=== PATIENT | female | born 2000 | race Caucasian/White ===

== ENCOUNTER 2021-06-23 11:08 | Emergency (ER) | payer MEDICAID, SELFPAY ==
[2021-06-23 11:15] VITALS: BP 109/73; PULSE 88; RESP 16; TEMP 36.6; O2SAT 97
[2021-06-23 11:22] VITALS: PULSE 82; RESP 16; TEMP 36.8; O2SAT 97
--- NOTE | 2021-06-23 11:25 | ED.GENADUL_ITS ---
Discharge Plan Disposition Patient Disposition: HOME Condition: Improving Discharge Details Chief Complaint: AnimalBite Clinical Impression: Tick bite of left upper arm Primary Care Provider: Manuel Sahu ED Provider: Hira Quevedo Discharge Instructions Instructions: Tick Bite (ED) Additional Instructions: You were given a one-time dose of doxycycline. This may make you slightly sensitive to the sun over the next 24 to 36 hours. Avoid prolonged sun exposure for 1 to 2 days. Return for any acute concern Medical Decision Making 20-year-old female presents with left arm PICC that she believes has been attached since yesterday. The PICC was removed without difficulty, there is no evidence of a rash. Patient given 200 mg of doxycycline empirically for possible Lyme disease exposure. She is stable and appropriate for outpatient. HPI General Mode of arrival: ambulatory . Date/Time Provider Initiated Documentation: 06/23/21 11:20 . Limitations to Documentation: no limitations . Information obtained by: patient . History of Present Illness 20 year old F presents to the emergency department with the chief complaint of Left arm tick, described as mild, and is localized to the left and upper extremity. Patient reports no radiation. Patient started experiencing this hour(s) and it has been constant. improves with No relieving factors improve symptom(s), No exacerbating factors reported . Patient did receive the following treatments prior to arrival, none Related Data Allergies Allergy/AdvReac Type Severity Reaction Status Date / Time No Known Allergies Allergy Unverified 06/23/21 11:19 General Stated Complaint: AnimalBite TIAGO: 4 Review of Systems Narrative: No rash. No other illness. 4 systems reviewed and PFSH All Active Problems (Updated 06/23/21 @ 11:28 by Hira Quevedo MD) Tick bite of left upper arm (Acute) Social History Smoking/Tobacco Use Status: Never Smoking risk assessment performed?: Yes Alcohol Intake: never Drug use: Never Substance use type: does not use Do you feel safe at home: Yes Do you feel safe in your relationship?: Yes Exam Narrative Exam Narrative: GEN: awake, alert, oriented 3. Pleasant, well groomed, interactive. HEAD: Normocephalic, atraumatic CHEST/RESP: No respiratory EXT: Full ROM, no edema, no rash, tick latched on left humerus posteriorly Neuro: Grossly normal neurologic exam, conversant, interactive. Psych: Speech fluent, thoughts congruent, affect normal Course Vital Signs Vital signs: Vital Signs Temperature 36.6 C 06/23/21 11:15 Pulse 88 06/23/21 11:15 Respiratory Rate 16 06/23/21 11:15 Blood Pressure 109/73 06/23/21 11:15 Pulse Oximetry 97 06/23/21 11:15 Temperature 36.8 C 06/23/21 11:22 Pulse 82 06/23/21 11:22 Respiratory Rate 16 06/23/21 11:22 Respiratory Effort 06/23/21 11:20 Blood Pressure 109/73 06/23/21 11:15 Pulse Oximetry 97 06/23/21 11:22 Oxygen Delivery Method Room Air 06/23/21 11:15 Oxygen Flow Rate 0 06/23/21 11:15
[2021-06-23] MEDS: Doxycycline Hyclate 100 MG CAP 200 MG PO (11:32)
== END 2021-06-23 11:34 | disposition home or self-care (01) ==
PROVIDERS: Emergency Provider Emergency Medicine; PCP Family Medicine
DX: S40.862A Insect bite (nonvenomous) of left upper arm, initial encounter (principal); W57.XXXA Bitten or stung by nonvenomous insect and other nonvenomous arthropods, initial encounter
CPT/HCPCS: 99283

== ENCOUNTER 2022-12-16 16:58 | Emergency (ER) | payer BC, SELFPAY ==
--- NOTE | 2022-12-16 17:00 | DI.CT_ITS ---
Exam(s) CT HEAD W EXAM: CT HEAD W CLINICAL HISTORY: r/o posterior eye mass. TECHNIQUE: Imaging Protocol: Axial computed tomography images of the with coronal and sagittal refo rmatted images were created and reviewed. CONTRAST MATERIAL: Intravenous: Omnipaque 350 Contrast volume:100 ml Contrast route:IV - COMPARISON: No exams were available for comparison FINDINGS: Ventricles and Extra axial spaces: Normal in size and morphology for the patient's age. Hemorrhage: None. Cerebral parenchyma: Normal. Enhancement: No suspicious enhancement. Midline shift: None. Brainstem/Cerebellum: Normal. Calvarium: Normal. Visualized Paranasal sinuses/Mastoids: Small mucous retention cyst in the right maxillary sinus. Soft tissues: Unremarkable. No orbital mass is identified. There is no evidence of foreign body or soft tissue swelling. The growth globes appear intact. The optic nerves and after extraocular muscl es appear symmetric. IMPRESSION: Normal contrast enhanced CT scan of the head.No orbital abnormality. RADIATION DOSE DELIVERED: Total DLP DATA REPOSITORY: All CT scans at this facility are submitted to the National Radiology Data Registry (NRDR) Dose Index Registry (DIR) with the [employer] (ACR). RADIATION OPTIMIZATION: All CT scans at this facility use at least one of these dose optimization te chniques: automated exposure control; mA and/or kV adjustment per patient size (includes targeted exa ms where dose is matched to clinical indication); or iterative reconstruction.
[2022-12-16 17:03] VITALS: BP 142/81; PULSE 90; RESP 16; TEMP 36.5; O2SAT 97
[2022-12-16 17:14] VITALS: BP 142/81; PULSE 90; RESP 16; TEMP 36.5; O2SAT 97
--- NOTE | 2022-12-16 17:45 | ED.GENADUL_ITS ---
Discharge Plan Disposition Patient Disposition: Home Discharge Details Chief Complaint: EyeProblem Clinical Impression: Skew deviation of eye, right Primary Care Provider: Manuel Sahu ED Provider: Jamie Potts Home Meds and New Rx's Prescriptions: No Action levothyroxine 175 mcg tablet 175 mcg PO DAILY Patient Comments: TAKE ONE TABLET BY MOUTH EVERY DAY Discharge Instructions Additional Instructions: At this time the CAT scan does not show any evidence of tumor or mass. The neck step is an MRI for further assessment. As we discussed together there are potential viral causes of this or potential neurologic autoimmune components. We will hold off on medications for the time being until we have the MRI for further assessment. Please follow-up closely with your primary care provider and your safety equipment testing specialist. If you notice any worsening of your symptoms, or any new symptoms such as vomiting, diarrhea, fever, chills, shortness of breath, chest pain, numbness, weakness, or fainting , please return immediately to the emergency department for reevaluation. Please follow up with your primary care provider as soon as possible for reassessment and reevaluation. As always, it was a pleasure participating in your medical care today. Referrals: Glenn Bell [ [facility] STAFF PHYSICIAN] - Medical Decision Making 22-year-old female with a past medical history of hypothyroidism presents today for evaluation of vision change. Patient states that over the last 2 months she noticed that she was getting slight double vision. This would be intermittent, but eventually over the last month it became persistent. She went to see her safety equipment testing specialist today, where she was noted to have exotropia with a downward deviation of the right eye. She denies any headache or vision changes otherwise. She denies any numbness tingling or weakness. She denies any family or personal history of pituitary tumor. She denies any other medical problems. She was diagnosed with a hypothyroidism this February. No fevers or weight loss. No headache or neck pain. No change in smell. No other complaints at this time. Ophthalmology recommends evaluation with CT scan. Physical exam demonstrates all cardinal planes of vision and feels vision being intact. No deficit that can be appreciated currently. When the patient is looking forward her right eye naturally deviates down and out, however she is able to bring it midline and track appropriately. No abnormality otherwise. Concern for peripheral cranial nerve palsy, intracranial etiology or pituitary tumor. We will get a CT scan for further assessment. 6:[address] scan has returned no evidence of acute process. No contrast-enhancing lesions. Patient continues to feel well and is asking to be discharged. Discussed potential steroids and antivirals, and the patient would like to hold off on any medications at this time unless absolutely indicated. There is not a clear cause of her symptoms at this time. Differential still includes MS, potential viral etiology, or smaller etiology that be visible on MRI. Understanding this, patient would like to hold off until MRI is performed to start potential steroids or other medications. Will recommend outpatient MRI to be performed by PCP. Otherwise discussed red flags for which to return. Patient feels stable. I have extensively reviewed the treatment plan and discharge instructions with the patient and their family. I have addressed all patient concerns at this time. The patient and family was made aware of what symptoms to monitor for that would warrant a return to the emergency department. Discussed the plan with the patient and family, they demonstrate verbal understanding and agreement with our assessment and plan at this time. The documentation in this chart was dictated using [employer] dictation software. Please excuse any dictation errors. FINDINGS: Ventricles and Extra axial spaces: Normal in size and morphology for the patient's age. Hemorrhage: None. Cerebral parenchyma: Normal. Enhancement: No suspicious enhancement. Midline shift: None. Brainstem/Cerebellum: Normal. Calvarium: Normal. Visualized Paranasal sinuses/Mastoids: Small mucous retention cyst in the right maxillary sinus. Soft tissues: Unremarkable. No orbital mass is identified. There is no evidence of foreign body or soft tissue swelling. The growth globes appear intact. The optic nerves and after extraocular muscles appear symmetric. IMPRESSION: Normal contrast enhanced CT scan of the head.No orbital abnormality. HPI General Date/Time Provider Initiated Documentation: 12/16/22 17:01 . HPI Narrative: 22-year-old female with a past medical history of hypothyroidism presents today for evaluation of vision change. Patient states that over the last 2 months she noticed that she was getting slight double vision. This would be intermittent, but eventually over the last month it became persistent. She went to see her safety equipment testing specialist today, where she was noted to have exotropia with a downward deviation of the right eye. She denies any headache or vision changes otherwise. She denies any numbness tingling or weakness. She denies any family or personal history of pituitary tumor. She denies any other medical problems. She was diagnosed with a hypothyroidism this February. No fevers or weight loss. No headache or neck pain. No change in smell. No other complaints at this time. Related Data Home Medications Medication Instructions Recorded Confirmed levothyroxine 175 mcg tablet 175 mcg PO DAILY 12/16/22 12/16/22 Allergies Allergy/AdvReac Type Severity Reaction Status Date / Time No Known Allergies Allergy Unverified 12/16/22 17:10 General Stated Complaint: EyeProblem TIAGO: 3 Review of Systems All systems reviewed & are unremarkable except as noted in HPI and below PFSH All Active Problems (Updated 12/16/22 @ 18:53 by Jamie Potts DO) Skew deviation of eye, right (Acute) Social History Smoking/Tobacco Use Status: Never Smoking risk assessment performed?: Yes Alcohol Intake: never Drug use: Never Substance use type: does not use Do you feel safe at home: Yes Do you feel safe in your relationship?: Yes Exam Narrative Exam Narrative: 1.Const: Well-nourished, Well-developed, appearing stated age 2.Eyes: PERRL, no conjunctival injection, and symmetrical lids. Pupils are notably dilated secondary to dilatation that occurred at ophthalmology. Patient demonstrates all cardinal planes of vision and feels vision being intact. No deficit that can be appreciated currently. When the patient is looking forward her right eye naturally deviates down and out, however she is able to bring it midline and track appropriately. 3.ENT: Atraumatic external nose and ears. Moist MM. Neck: Symmetric, trachea midline, No thyromegaly. 4.CVS: +S1/S2, No murmurs or gallops. Peripheral pulses 2+ and equal in all extremities. Brisk capillary refill in all extremities. 5.RESP: Unlabored respiratory effort. Clear to auscultation bilaterally. No wheezes rales or rhonchi 6.GI: Soft, Nontender/Nondistended, No hepatosplenomegaly. No guarding or rebound. 7.MSK: Normocephalic/Atraumatic, Extremities w/o deformity or ttp No cyanosis or clubbing, Normal movement of all extremities 8.Skin: Warm, Dry. No rashes or lesions. 9.Neuro: chassis engineer II-XII grossly intact. Sensation grossly intact, no focal neurologic deficits. All 6 cardinal planes of vision are fully intact. No evidence of rotatory or vertical nystagmus. The patient demonstrated a normal [id number], good dexterity. There was no evidence of dysdiadochokinesia. Patient was able to ambulate without difficulty. There was no wide-based gait. Romberg testing was normal. [id number] testing was normal. Sensation was intact bilaterally as well as muscle strength bilaterally for all extremities. Patient was able to verbalize butter cup with no slurring, or miss pronunciation. 10.Psych: (AAO) x3. Appropriate mood and affect Course Vital Signs Vital signs: Vital Signs Temperature 36.5 C 12/16/22 17:03 Pulse 90 12/16/22 17:03 Respiratory Rate 16 12/16/22 17:03 Blood Pressure 142/81 H 12/16/22 17:03 Pulse Oximetry 97 12/16/22 17:03 Temperature 36.5 C 12/16/22 17:14 Temperature Source Oral 12/16/22 17:14 Pulse 90 12/16/22 17:14 Respiratory Rate 16 12/16/22 17:14 Blood Pressure 142/81 H 12/16/22 17:14 Blood Pressure Position Sitting 12/16/22 17:14 Pulse Oximetry 97 12/16/22 17:14 Oxygen Delivery Method Room Air 12/16/22 17:14 Oxygen Flow Rate 0 12/16/22 17:03 Pain Level 0 12/16/22 17:14 Lab/Test Results Lab/Test Results: POC- Test(urine) Negative
[2022-12-16 17:51] VITALS: BP 158/77
[2022-12-16 17:51] LABS: Anion Gap 9.8 mmol/L (3-11); BUN 12 mg/dL (7-18); CO2 25.2 mmol/L (21.0-32.0); CREATININE 0.8 mg/dL (0.55-1.02); Calcium 9.6 mg/dL (8.5-10.1); Chloride 102 mmol/L (98-107); Estimated GFR 105.45 (mL/min/1.73m2); Glucose 101 mg/dL (74-106); Potassium 3.6 mmol/L (3.5-5.1); Sodium 137 mmol/L (136-145)
[2022-12-16] MEDS: Normal Saline - Diluent 50 ML VIAL IJ (18:02)
[2022-12-16] MEDS: Omnipaque 350 MG/ML 100 ML BTL IJ (18:04)
[2022-12-16] MEDS: Normal Saline Flush 10 ML SYR IVP (18:05)
--- NOTE | 2022-12-16 19:02 | NUR.NOTE ---
Pt placed on care management referral list for PCP direct OUTPT MRI. To be seen within 1-2 weeks, per ER Dr. Potts.
== END 2022-12-16 18:57 | disposition home or self-care (01) ==
PROVIDERS: Emergency Provider Student in an Organized Health Care Education/Training Program; PCP Family Medicine
DX: H51.8 Other specified disorders of binocular movement (principal); E03.9 Hypothyroidism, unspecified
CPT/HCPCS: 36415; 80048; 81025; 99285; 70460; 99284; J3490